=== PATIENT | female | born 1955 | race Caucasian/White ===

== ENCOUNTER 2019-11-22 14:18 | Emergency (ER) | payer BC ==
[2019-11-22 14:25] VITALS: TEMP 98.1
--- NOTE | 2019-11-22 15:13 | ED ---
General Adult HPI - General Chief complaint: Head Injury Stated complaint: Fell and injured head Time Seen by Provider: 11/22/19 14:25 Source: patient, RN notes reviewed Mode of arrival: wheelchair Limitations: no limitations - History of Present Illness Initial comments: 64-year-old female with a past medical history of hypertension presents to the emergency department for head injury. Patient states that 3 days ago she had a stroke in her balance has been off since that time. Patient states that she got her "feet jumbled" under her last night and fell. Patient hit her head. Patient does not take blood thinners. Patient did not have a loss of consciousness. Patient states whenever she turns her head hurts worse on the right side. Patient states this started after the fall. He states that she is lying flat pain is better.Patient has no other complaints at this time including shortness of breath, chest pain, abdominal pain, nausea or vomiting, or visual changes. - Related Data Allergies Allergy/AdvReac Type Severity Reaction Status Date / Time Penicillins Allergy Unknown Verified 11/22/19 14:25 Childhood Review of Systems ROS Statement: Those systems with pertinent positive or pertinent negative responses have been documented in the HPI. ROS Other: All systems not noted in ROS Statement are negative. Past Medical History Past Medical History: Hypertension History of Any Multi-Drug Resistant Organisms: None Reported Past Surgical History: Hysterectomy Past Psychological History: No Psychological Hx Reported Smoking Status: Never smoker Past Alcohol Use History: Occasional Past Drug Use History: None Reported General Exam Limitations: no limitations General appearance: alert, in no apparent distress Head exam: Present: atraumatic, normocephalic, normal inspection Eye exam: Present: normal appearance, PERRL, EOMI. Absent: scleral icterus, conjunctival injection, periorbital swelling ENT exam: Present: normal exam, normal oropharynx, mucous membranes moist, TM's normal bilaterally, normal external ear exam Neck exam: Present: normal inspection, full ROM. Absent: tenderness, meningismus, lymphadenopathy Respiratory exam: Present: normal lung sounds bilaterally. Absent: respiratory distress, wheezes, rales, rhonchi, stridor Cardiovascular Exam: Present: regular rate, normal rhythm, normal heart sounds. Absent: systolic murmur, diastolic murmur, rubs, gallop, clicks Course Vital Signs 11/22/19 14:21 Temperature 98.1 F Pulse Rate 78 Respiratory 16 Rate Blood Pressure 155/94 O2 Sat by Pulse 98 Oximetry Medical Decision Making - Medical Decision Making CT cervical spine shows mild degenerative disc changes in the lower cervical spine. No fracture. CT brain shows bilateral white matter hypodensity with chronic small vessel ischemia demyelinating disease. No acute hemorrhage. Patient will follow up with primary care and will partake in brain rest. Con cussion precautions discussed. SHe'll return here for any worsening symptoms. Disposition Clinical Impression: Head injury Disposition: HOME SELF-CARE Condition: Good Instructions (If sedation given, give patient instructions): Concussion in Children (ED) Additional Instructions: Please follow up with primary care in 1-2 days. Alternate Motrin and Tylenol for pain. If pain is severe take Tylenol 3. Do not drive or operate machinery while taking Tylenol 3. Return to the emergency room for any worsening symptoms. Otherwise rest as much as possible. Is patient prescribed a controlled substance at d/c from ED?: No Referrals: Nonstaff,Physician [Primary Care Provider] - 1-2 days Time of Disposition: 15:46
--- NOTE | 2019-11-22 15:24 | CT ---
EXAMINATION TYPE: CT brain lexieine wo con DATE OF EXAM: 11/22/2019 COMPARISON: None HISTORY: Fall yesterday with posterior injury. Head and neck pain CT DLP: 1406.2 mGycm Automated exposure control for dose reduction was used. Exam performed with no contrast. Ventricles and sulci appear normal. There is no mass effect nor midline shift. There is no sign of in tracranial hemorrhage. There is white matter hypodensity in the centrum semiovale bilaterally. The ca lvarium is intact. There is normal aeration of the temporal bones. Skull base is intact. Cervical vertebra have normal alignment. There is mild spondylotic changes at C5-6 and C6-7 with mild disc space narrowing and spur formation. The facet joints appear intact. IMPRESSION: Minor degenerative disc changes in the lower cervical spine. No fracture. 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
[2019-11-22] MEDS ORDERED: ACET/COD 300 MG/30 MG STARTER PACK 6 TAB BTL PO STA (15:46)
[2019-11-22 15:57] VITALS: BP 122/63; PULSE 77; RESP 18
== END 2019-11-22 15:55 | disposition home or self-care (01) ==
LOC: EC 14:18
DX: S09.90XA Unspecified injury of head, initial encounter (principal); M50.323 Other cervical disc degeneration at C6-C7 level; G37.9 Demyelinating disease of central nervous system, unspecified; I67.82 Cerebral ischemia; R90.82 White matter disease, unspecified; Z88.0 Allergy status to penicillin; Z86.73 Personal history of transient ischemic attack (TIA), and cerebral infarction without residual deficits; W19.XXXA Unspecified fall, initial encounter
CPT/HCPCS: 70450; 72125; 99283